=== PATIENT | female | born 1985 | race Caucasian/White ===

== ENCOUNTER → 2025-03-29 | Outpatient (CLI) | payer MEDICAID, SELFPAY ==
--- NOTE | 2025-03-29 16:33 | XR_ITS ---
Examination: Cervical spine 3 views Technique one AP lateral, and AP odontoid cervical spine 3 views Date and time: March 29, 2025 1716 hours INDICATIONS: Neck pain and stiffness beginning one year ago. FINDINGS: Straightening normal cervical lordosis Moderate disc narrowing C5-C6 No cervical fracture Intact odontoid IMPRESSION: Moderate degenerative disc disease C5-C6 including mild posterior osteophyte formation
--- NOTE | 2025-03-29 16:33 | XR_ITS ---
Examination: PA lateral chest 2 views TECHNIQUE: Upright PA and lateral chest 2 views Date and time: March 29, 2025 1710 hours INDICATIONS: Smoking history 15 years shortness of breath 2 weeks. FINDINGS: Normal heart size The lungs are clear. Thoracic structures are intact IMPRESSION: No active disease
--- NOTE | 2025-03-29 16:33 | XR_ITS ---
Examination: Hand, left 3 views Technique: Hand AP, oblique, lateral 3 views Date and time of exam: March 29, 2025 1703 hours INDICATIONS: Left hand pain 3 years FINDINGS: Advanced osteoarthritis first carpometacarpal joint Mild osteoarthritis distal interphalangeal joints [place] no fracture is No cortical bone destruction IMPRESSION: Advanced osteoarthritis first carpometacarpal joint
== END | disposition home or self-care (01) ==
PROVIDERS: PCP Nurse Practitioner Primary Care; Referring Provider Nurse Practitioner Primary Care; Visit Provider Nurse Practitioner Primary Care
DX: R06.02 Shortness of breath (principal); F17.200 Nicotine dependence, unspecified, uncomplicated; M18.12 Unilateral primary osteoarthritis of first carpometacarpal joint, left hand; M50.322 Other cervical disc degeneration at C5-C6 level; M48.02 Spinal stenosis, cervical region
CPT/HCPCS: 71046; 72040; 73130